=== PATIENT | male | born 1980 | race Caucasian/White ===

== ENCOUNTER 2020-10-28 01:19 | Outpatient (CLI) | payer OTHER, SELFPAY ==
[2020-10-28 20:09] LABS: SARS-CoV-2 RNA PCR Negative
== END 2020-10-28 01:20 | disposition home or self-care (01) ==
LOC: ANHCOVIDDT 01:19
PROVIDERS: PCP Internal Medicine; Visit Provider Internal Medicine Gastroenterology
DX: Z01.812 Encounter for preprocedural laboratory examination (principal); Z20.822 Contact with and (suspected) exposure to COVID-19
CPT/HCPCS: C9803; U0003

== ENCOUNTER 2020-11-01 00:27 | Day surgery (SDC) | payer OTHER, SELFPAY ==
[2020-10-23 08:40] VITALS: BMI 22.8
[2020-11-01 06:24] VITALS: BP 124/89; PULSE 93; RESP 20; TEMP 36.4; O2SAT 99
[2020-11-01] MEDS: LACTATED RINGERS 1,000 ML 150 ML IV CONT (06:36)
--- NOTE | 2020-11-01 07:18 | WPDANESEPPF ---
Anes - Initial Pre Proc Eval Procedure: Operation Date: 11/01/20 07:30 Proposed Procedures p Screening Colonoscopy - Dominic Kelsey MD Date/Time: 11/01/20 07:18 Surgeon: Dominci Kelsey MD Pre Op Diagnosis: neoplasm screening Patient Data Age: 39 Gender: M Height: 5 ft 8 in Weight: 70.7 kg Last Vital Signs Temp 97.5 F L 11/01/20 06:24 Pulse 93 11/01/20 06:24 Resp 20 11/01/20 06:24 BP 124/89 11/01/20 06:24 Pulse Ox 99 11/01/20 06:24 Allergies Allergy/AdvReac Type Severity Reaction Status Date / Time No Known Allergies Allergy Verified 11/01/20 06:23 Home Medications Medication Instructions Recorded Confirmed Type No Home Medications 10/23/20 10/23/20 History Patient hx anesthesia problems: none Family hx anesthesia problems: none PMFSH Past Medical History Medical History (Updated 09/25/20 @ 13:44 by Lorenzo Ansari DO) Family history of malignant neoplasm of brain Family History Family History (Updated 09/25/20 @ 13:08 by Rosalba Devine) Sibling Brain cancer Father Colon polyp Grandparent Colon polyp Heart disease Social History Social History (Updated 11/01/20 @ 07:18 by Antonio Cooper MD) Tobacco type: e-cigarettes/vaping Alcohol intake: never Substance use: never Substance use type: does not use Living arrangements: with family Spiritual care concerns: No Anes - Eval Final PreProcedure Day of Procedure 11/01/20 07:18 Patient weight: normal Heart: regular rate and rhythm Lungs: clear to auscultation Airway: Mallampati scale class II Neurological: alert and oriented Last oral intake: >/= 8 hours ASA classification: II Emergent: no Anesthetic plan: proceed Anesthesia type and monitoring: general GIVS and standard monitoring Informed Consent: The patient's anesthetic plan and its attendant risks and benefits were discussed with the patient/family/POA. Questions were solicited and answers provided to the satisfaction of the patient/family/POA.
--- NOTE | 2020-11-01 07:38 | PM.HPGS ---
History of Present Illness History of Present Illness Consent: Risks, benefits, and alternatives have been discussed and questions answered. Patient agrees to proceed with procedure. Chief complaint: neoplasm screening Narrative: Eloy Schuster is a 39 year old male here for first screening colonoscopy Review of Systems Constitutional: Constitutional: Denies headache(s) and Denies weakness Eyes: Eyes: Denies blurry vision ENT: Reports Normal hearing present, Denies headache(s) and Denies neck pain Cardiovascular: Cardiovascular: Denies chest pain and Denies dyspnea Respiratory: Respiratory: Denies dyspnea Gastrointestinal: Gastrointestinal: Reports no additional gastrointestinal complaints Genitourinary: Genitourinary: Denies dysuria Musculoskeletal: Musculoskeletal: Denies neck pain Integumentary/Breasts: Skin/Breast: Denies dry skin Neurologic: Reports Normal hearing present, Denies headache(s) and Denies weakness Psychiatric: Psychiatric: Denies anxiety Endocrine: Endocrine: Denies change in body appearance Hematologic/Lymphatic: Hematologic/Lymphatic: Denies easy bleeding Allergic/Immunologic: Allergic/Immunologic: Denies urticaria [facility] Past Medical History Medical History (Updated 11/01/20 @ 07:38 by Dominic Kelsey MD) Colon cancer screening Family history of malignant neoplasm of brain Family History Family History (Updated 09/25/20 @ 13:08 by Rosalba Devine) Sibling Brain cancer Father Colon polyp Grandparent Colon polyp Heart disease Social History Social History (Updated 11/01/20 @ 07:18 by Antonio Cooper MD) Tobacco type: e-cigarettes/vaping Alcohol intake: never Substance use: never Substance use type: does not use Living arrangements: with family Spiritual care concerns: No Meds Home Medications and Allergies Home Medications Medication Instructions Recorded Confirmed Type No Home Medications 10/23/20 10/23/20 History Allergies Allergy/AdvReac Type Severity Reaction Status Date / Time No Known Allergies Allergy Verified 11/01/20 06:23 Vital Signs Vital Signs - 24 hr 11/01/20 06:24 Temperature 97.5 F L Pulse Rate 93 Respiratory Rate 20 Blood Pressure 124/89 Pulse Oximetry 99 Exam Const: General: comfortable and no acute distress HENMT: General nose exam: Normal nares present Eyes: General: appearance normal, both eyes and all related structures Neck: Neck: no JVD Resp: Auscultation: clear to auscultation bilaterally Cardio: Rate: regular rate Rhythm: regular rhythm GI: Inspection: non-distended GI Palp: Yes Soft to palpation Skin: General skin exam: normal color Neuro: General: gait normal Speech: normal speech Extrem: General: normal to inspection Psych: Mental Status: mental status grossly normal Assessment and Plan Assessment and plan (1) Colon cancer screening: Code(s): Z12.11 - Encounter for screening for malignant neoplasm of colon Status: Acute Assessment and Plan: will proceed with colonoscopy
[2020-11-01 07:56] VITALS: BP 102/66; PULSE 77; RESP 16; O2SAT 96
[2020-11-01 08:06] VITALS: BP 105/66; PULSE 73; RESP 12; O2SAT 99
[2020-11-01 08:16] VITALS: BP 114/76; PULSE 74; RESP 16; O2SAT 99
== END 2020-11-01 08:31 | disposition home or self-care (01) ==
PROVIDERS: PCP Internal Medicine; Visit Provider Internal Medicine Gastroenterology
PROC: 0DJD8ZZ Inspection of Lower Intestinal Tract, Via Natural or Artificial Opening Endoscopic (ICD-10-PCS; CPT 45378; principal; 2020-11-01 07:30)
DX: Z12.11 Encounter for screening for malignant neoplasm of colon (principal); K63.5 Polyp of colon; K64.8 Other hemorrhoids
CPT/HCPCS: 45380; 88305; C9803; J2704; J7120; U0003

== ENCOUNTER 2021-02-01 14:57 | Outpatient (CLI) | payer OTHER, SELFPAY | END 2021-02-01 14:58 | disposition home or self-care (01) | LOC: ANHCOVIDVC 14:57 | PROVIDERS: PCP Internal Medicine | DX: Z23 Encounter for immunization (principal) | CPT/HCPCS: 0001A; 91300 ==

== ENCOUNTER 2021-02-22 15:57 | Outpatient (CLI) | payer OTHER, SELFPAY | END 2021-02-22 15:58 | disposition home or self-care (01) | LOC: ANHCOVIDVC 15:57 | PROVIDERS: PCP Internal Medicine | DX: Z23 Encounter for immunization (principal) | CPT/HCPCS: 0002A; 91300 ==